=== PATIENT | female | born 1990 ===

== ENCOUNTER 2023-09-23 09:08 | Inpatient (IN) | payer OTHER ==
[2023-09-23] MEDS: ELECTROLYTE-148 SOLN 1,000 ML IV SCH ×2 (09:30→11:30)
[2023-09-23 09:55] VITALS: BMI 28.3
[2023-09-23 10:13] LABS: INR 0.95 (0.83-1.09)
[2023-09-23 10:17] LABS: ACTIVATED PTT 27.5 SECONDS (25.2-36.5)
[2023-09-23 10:20] LABS: BASO % 0.7 % (0-2.0); HEMATOCRIT 33.9 % (32.4-45.2); HEMOGLOBIN 11.3 GM/dL (10.7-15.3); LYMPH % 23.6 % (8-40); MCHC 33.2 g/dl (32.0-36.0); MEAN CELL VOLUME 84.5 fl (80-96); MEAN PLT VOLUME 8.8 fl (7.5-11.1); MONO % 9.9 % (3.8-10.2); NEUT % 64.8 % (42.8-82.8); PLATELET COUNT 253 10^3/uL (134-434); RBC 4.01 M/mm3 (3.60-5.2); RDW 14.3 % (11.6-15.6); WHITE BLOOD COUNT 6.5 K/mm3 (4.0-10.0)
[2023-09-23] MEDS ORDERED: BUTORPHANOL TARTRATE 2 MG/ML VIAL ONE (10:22)
[2023-09-23] MEDS ORDERED: PROMETHAZINE HCL 25 MG/1 ML VIAL ONE (10:23)
[2023-09-23] MEDS ORDERED: OXYTOCIN 20 UNITS in 0.9% NS 20 UNIT/1,000 ML INFUS.BAG IV ONE (10:24)
[2023-09-23] MEDS ORDERED: FENTANYL/BUPIVACAINE/NS/PF - PCEA - 50 ML DISP.SYRIN EP ONE ×2 (10:50→16:50)
[2023-09-23 10:56] LABS: POTASSIUM 3.8 mmol/L (3.5-5.1)
[2023-09-23 10:58] LABS: CALCIUM 8.6 mg/dL (8.5-10.1)
[2023-09-23 10:59] LABS: BLOOD UREA NITROGEN 4.7 mg/dL (7-18)
[2023-09-23] MEDS ORDERED: ELECTROLYTE-148 SOLN 1,000 ML IV SCH (11:00)
[2023-09-23 11:02] LABS: CREATININE 0.5 mg/dL (0.55-1.3)
[2023-09-23] MEDS: FENTANYL/BUPIVACAINE/NS/PF - PCEA - 50 ML DISP.SYRIN EP SCH ×2 (11:14→16:54)
[2023-09-23] MEDS ORDERED: NALOXONE HCL 0.4 MG/ML VIAL IVPUSH PRN (11:25)
[2023-09-23 11:51] LABS: HIV INTERPRETATION NEGATIVE (NEGATIVE)
[2023-09-23] MEDS ORDERED: SODIUM CHLORIDE IVPB ONE (12:15)
[2023-09-23] MEDS ORDERED: PROMETHAZINE IVPB ONE (12:15)
[2023-09-23] MEDS ORDERED: BUTORPHANOL TARTRATE IVPB ONE (12:15)
[2023-09-23] MEDS ORDERED: OXYTOCIN 30 UNITS in 0.9% NS 30 UNIT/500 ML INFUS.BAG IVPB SCH (13:45)
[2023-09-23] MEDS ORDERED: ACETAMINOPHEN 325 MG TABLET (FP) PO PRN (18:07)
[2023-09-23] MEDS ORDERED: BENZOCAINE 28 GM HEMORRHOIDAL OINTMENT TP PRN (18:07)
[2023-09-23] MEDS ORDERED: METHYLERGONOVINE MALEATE 0.2 MG/1 ML AMP IM PRN (18:07)
[2023-09-23] MEDS ORDERED: BENZOCAINE 20% 57 GM BOTTLE TP PRN (18:07)
[2023-09-23] MEDS ORDERED: WITCH HAZEL 50% (TUCKS) 40 PAD/JAR PAD TP PRN (18:07)
[2023-09-23] MEDS ORDERED: BISACODYL 10 MG SUPP.RECT RC PRN (18:07)
[2023-09-23] MEDS ORDERED: IBUPROFEN 600 MG TABLET (FP) PO PRN (18:07)
[2023-09-23] MEDS ORDERED: oxyCODONE HCL 5 MG TABLET PO PRN (18:07)
[2023-09-23] MEDS ORDERED: OXYTOCIN 20 UNITS in 0.9% NS 20 UNIT/1,000 ML INFUS.BAG IV SCH (18:15)
[2023-09-24 08:05] LABS: BASO % 0.3 % (0-2.0); EOS % 0.2 % (0-4.5); HEMATOCRIT 31.4 % (32.4-45.2); HEMOGLOBIN 10.5 GM/dL (10.7-15.3); LYMPH % 12.8 % (8-40); MCH 28.4 pg (25.7-33.7); MCHC 33.4 g/dl (32.0-36.0); MEAN CELL VOLUME 84.9 fl (80-96); MONO % 7.8 % (3.8-10.2); NEUT % 78.9 % (42.8-82.8); PLATELET COUNT 232 10^3/uL (134-434); RBC 3.69 M/mm3 (3.60-5.2); RDW 14.3 % (11.6-15.6); WHITE BLOOD COUNT 12.5 K/mm3 (4.0-10.0)
[2023-09-24] MEDS: FERROUS SO4 325 MG TABLET (FP) PO SCH (08:28)
[2023-09-24] MEDS: PRENATAL VITAMINS W/ FOLIC ACID TABLET (FP) PO SCH (10:05)
[2023-09-24] MEDS ORDERED: SENNOSIDES/DOCUSATE COMBO (SENNA PLUS) TABLET (UD) PO PRN (22:00)
[2023-09-25 08:24] VITALS: BP 122/64; PULSE 74; RESP 16; TEMP 98.3
[2023-09-25] MEDS: FERROUS SO4 325 MG TABLET (FP) PO SCH (08:56)
[2023-09-25] MEDS: PRENATAL VITAMINS W/ FOLIC ACID TABLET (FP) PO SCH (10:11)
== END 2023-09-25 14:25 | disposition home or self-care (01) | DRG 560 ==
LOC: JLDR 09:08 → J3W 20:45
PROVIDERS: ADMIT Obstetrics & Gynecology; ATTEND Obstetrics & Gynecology
PROC: 10E0XZZ Delivery of Products of Conception, External Approach (ICD-10-PCS; principal; 2023-09-23)
DX: O80 Encounter for full-term uncomplicated delivery (principal); Z3A.39 39 weeks gestation of pregnancy; Z37.0 Single live birth
CPT/HCPCS: 36415; 80048; 85025; 85610; 85730; 86780; 86803; 86850; 86900; 86901; 87389